=== PATIENT | female | born 1945 | race Caucasian/White ===

== ENCOUNTER 2022-05-21 02:27 | Emergency (ER) | payer MEDICARE, OTHER ==
[~2022-05-21] VITALS: Ht 170.2 cm; Wt 74.8 kg
[2022-05-21] MEDS ORDERED: ICOS1CAP PO (02:58)
[2022-05-21] MEDS ORDERED: ASPI81TA31 PO (02:58)
[2022-05-21] MEDS ORDERED: RISP0.5T65 PO (02:58)
[2022-05-21] MEDS ORDERED: BENZ1TAB7 PO (02:58)
[2022-05-21] MEDS ORDERED: LEVO75TA7 PO (02:58)
[2022-05-21] MEDS ORDERED: GABA-532 PO (02:58)
[2022-05-21] MEDS ORDERED: ATOR40TA PO (02:58)
[2022-05-21] MEDS ORDERED: DIVA250T PO (02:58)
[2022-05-21] MEDS ORDERED: VALB40CA2 PO (02:58)
[2022-05-21] MEDS ORDERED: OMEP20TA5 PO (02:58)
[2022-05-21] MEDS ORDERED: LORAZEPAM 2 MG/1 ML VIAL IV ONE (03:30)
--- NOTE | 2022-05-21 03:30 | NUR ---
Seen and examined by Dr. Lucas
[2022-05-21] MEDS ORDERED: LORAZEPAM 2 MG/1 ML VIAL ONE (03:31)
--- NOTE | 2022-05-21 04:00 | NUR ---
gave meds as ordered, IV SL 20G on r hand noted.
[2022-05-21 04:23] LABS: HEMATOCRIT 39.5 % (31.2-41.9); MEAN CORPUSCULAR HEMOGLOBIN 33.6 uug (24.7-32.8); PLATELET COUNT (AUTO) 131 K/uL (179-408)
[2022-05-21 04:30] LABS: CARBON DIOXIDE 32 mmol/L (21-32); CHLORIDE 105 mmol/L (98-107); CREATININE 1.1 mg/dL (0.6-1.3); GLUCOSE 111 mg/dL (74-106); POTASSIUM 3.8 mmol/L (3.5-5.1); UREA NITROGEN, BLOOD 32 mg/dL (7-18)
[2022-05-21 04:36] LABS: ALANINE AMINOTRANSFERASE 16 U/L (14-59); ALKALINE PHOSPHATASE 127 U/L (50-136); ASPARTATE AMINOTRANSFERASE 12 U/L (15-37); BILIRUBIN,DIRECT 0.2 mg/dL (0.0-0.2); BILIRUBIN,TOTAL 0.5 mg/dL (0.2-1.0); CREATINE KINASE, TOTAL 99 U/L (26-192); TOTAL PROTEIN, SERUM 7.7 g/dL (6.4-8.2)
[2022-05-21 04:44] LABS: THYROID STIMULATING HORMONE 5.659 mIU/mL (0.358-3.740)
[2022-05-21 04:51] LABS: ETHANOL < 3 MG/DL (0-0)
[2022-05-21] MEDS ORDERED: ALPR0.5T8 PO (06:55)
--- NOTE | 2022-05-21 06:55 | NUR ---
sister left, and informed to discharge patient and call [employer], she set up [employer] account on her phone. Elena Lopez .
--- NOTE | 2022-05-21 07:03 | NUR ---
Patient discharged to home in stable condition. Written and verbal after care instructions given. Patient verbalizes understanding of instructions. Stressed follow up or return to ER for worsening s/s. called [employer] per sister. ordered [employer] to pick patient up
[2022-05-21 07:04] VITALS: BP 120/80
== END 2022-05-21 07:04 | disposition home or self-care (01) ==
LOC: ER 02:41
DX: G25.1 Drug-induced tremor (principal); T43.4X5A Adverse effect of butyrophenone and thiothixene neuroleptics, initial encounter; Y92.89 Other specified places as the place of occurrence of the external cause; E78.5 Hyperlipidemia, unspecified; E03.9 Hypothyroidism, unspecified; Z96.641 Presence of right artificial hip joint; Z88.2 Allergy status to sulfonamides; Z79.82 Long term (current) use of aspirin; Z79.899 Other long term (current) drug therapy; F99 Mental disorder, not otherwise specified
CPT/HCPCS: 80076; 80048; 82550; 84443; 80164; 85025; 36415; 99284; 96374; 80320; J2060; A4663; G0480

== ENCOUNTER 2022-06-22 14:37 | Inpatient (IN) | payer MEDICARE, OTHER ==
[~2022-06-22] VITALS: Ht 170.2 cm; Wt 74.8 kg
[~2022-06-22 14:37] MED LIST: ALPR0.5T8 PO; ASPI81TA31 PO; ATOR40TA PO; BENZ1TAB7 PO; DIVA250T PO; GABA-532 PO; ICOS1CAP PO; LEVO75TA7 PO; OMEP20TA5 PO; RISP0.5T65 PO; VALB40CA2 PO
[2022-06-22] MEDS ORDERED: ONDANSETRON ODT 4 MG TAB.RAPDIS ONE (15:40)
[2022-06-22] MEDS ORDERED: IV NORMAL SALINE 1000 ML BAG IV ONE (15:45)
[2022-06-22] MEDS ORDERED: HYDROCODONE/APAP 5-325MG TABLET PO ONE (15:45)
[2022-06-22] MEDS ORDERED: ONDANSETRON ODT 4 MG TAB.RAPDIS SL ONE (15:45)
[2022-06-22 15:52] LABS: HEMATOCRIT 37.4 % (31.2-41.9); MEAN CORPUSCULAR HEMOGLOBIN 33.4 uug (24.7-32.8); MEAN CORPUSCULAR VOLUME 99.9 fL (75.5-95.3); PLATELET COUNT (AUTO) 151 K/uL (179-408)
[2022-06-22 16:00] LABS: CARBON DIOXIDE 31 mmol/L (21-32); CHLORIDE 104 mmol/L (98-107); GLUCOSE 99 mg/dL (74-106); POTASSIUM 3.9 mmol/L (3.5-5.1); UREA NITROGEN, BLOOD 24 mg/dL (7-18)
[2022-06-22] MEDS ORDERED: HYDROCODONE/APAP 5-325MG TABLET ONE (16:05)
[2022-06-22 16:12] LABS: ALANINE AMINOTRANSFERASE 13 U/L (14-59); ALKALINE PHOSPHATASE 88 U/L (50-136); ASPARTATE AMINOTRANSFERASE 17 U/L (15-37); BILIRUBIN,DIRECT 0.1 mg/dL (0.0-0.2); BILIRUBIN,TOTAL 0.4 mg/dL (0.2-1.0); TOTAL PROTEIN, SERUM 7.4 g/dL (6.4-8.2)
[2022-06-22 17:05] LABS: *BLOOD, URINE NEGATIVE (NEGATIVE); *CLARITY,URINE CLEAR (CLEAR); *COLOR,URINE YELLOW (YELLOW); *KETONES,URINE 1+ (NEGATIVE); LEUKOCYTE ESTERASE ,URINE TRACE (NEGATIVE); NITRITE, URINE NEGATIVE (NEGATIVE); PH,URINE 5.5 (5.0-8.0); UGLUCOSE NEGATIVE (NEGATIVE)
[2022-06-22 17:07] LABS: *BILIRUBIN,URIN 1+ (NEGATIVE)
[2022-06-22 17:08] LABS: BACTERIA,URINE FEW /HPF (NONE SEEN); SQUAMOUS EPITHELIAL CELL,UR FEW /HPF (NONE SEEN)
[2022-06-22] MEDS ORDERED: LORAZEPAM 0.5 MG TABLET ONE (17:30)
[2022-06-22] MEDS ORDERED: LORAZEPAM 0.5 MG TABLET PO ONE (17:30)
[2022-06-22] MEDS ORDERED: DICL75TA5 PO (17:55)
[2022-06-22] MEDS ORDERED: DOCU100C36 PO (17:55)
[2022-06-22] MEDS ORDERED: RISP0.5T65 PO (17:55)
[2022-06-22 18:38] VITALS: BP 156/76
[2022-06-22] MEDS ORDERED: MAGNESIUM HYDROXIDE 30 ML LIQUID UDC PO PRN (18:45)
[2022-06-22] MEDS ORDERED: ONDANSETRON 4 MG/2 ML VIAL IV PRN (18:45)
[2022-06-22] MEDS ORDERED: ACETAMINOPHEN 325 MG TABLET PO PRN (18:45)
[2022-06-22] MEDS ORDERED: REMEDY ESSENTIAL ZINC PASTE 113 GM TP PRN (18:45)
[2022-06-22] MEDS ORDERED: ATOR20TA PO (18:46)
[2022-06-22] MEDS ORDERED: LEVO50TA8 PO (18:54)
[2022-06-22] MEDS ORDERED: DIVALPROEX ER 250 MG TAB.SR.24H PO SCH (21:00)
[2022-06-22] MEDS: ATORVASTATIN 20 MG TABLET PO SCH (21:24)
[2022-06-22] MEDS: GABAPENTIN 100 MG CAPSULE PO SCH (21:25)
[2022-06-22] MEDS: ENOXAPARIN SODIUM 40 MG/0.4 ML DISP.SYRIN SQ SCH (21:27)
[2022-06-23 04:00] VITALS: BP 134/74
[2022-06-23] MEDS: LEVOTHYROXINE SODIUM 50 MCG TABLET PO SCH (06:36)
[2022-06-23] MEDS: PANTOPRAZOLE SODIUM 40 MG TABLET.DR PO SCH (06:37)
[2022-06-23 07:00] LABS: HEMATOCRIT 34.1 % (31.2-41.9); MEAN CORPUSCULAR HEMOGLOBIN 34.1 uug (24.7-32.8); MEAN CORPUSCULAR VOLUME 100.1 fL (75.5-95.3); PLATELET COUNT (AUTO) 126 K/uL (179-408)
[2022-06-23 07:15] LABS: CREATININE 0.8 mg/dL (0.6-1.3); MAGNESIUM 2.2 mg/dL (1.8-2.4); PHOSPHOROUS 3.8 mg/dL (2.5-4.9)
[2022-06-23 07:18] LABS: THYROID STIMULATING HORMONE 1.157 mIU/mL (0.358-3.740)
[2022-06-23 08:43] VITALS: BP 142/68
[2022-06-23] MEDS ORDERED: BENZTROPINE MESYLATE 1 MG TABLET PO SCH (09:00)
[2022-06-23] MEDS: DOCUSATE SODIUM 100 MG CAPSULE PO SCH ×2 (09:35→16:39)
[2022-06-23] MEDS: ASPIRIN 81 MG TAB.CHEW PO SCH (09:36)
[2022-06-23] MEDS: risperiDONE 1 MG TABLET PO SCH (09:36)
[2022-06-23] MEDS: HYDROCODONE/APAP 5-325MG TABLET PO PRN (09:49)
[2022-06-23] MEDS: ALPRAZOLAM 0.5 MG TABLET PO PRN ×2 (14:53→20:53)
[2022-06-23 15:50] VITALS: BP 137/72
[2022-06-23] MEDS ORDERED: QUET50TA PO (18:11)
[2022-06-23] MEDS: ENOXAPARIN SODIUM 40 MG/0.4 ML DISP.SYRIN SQ SCH (20:51)
[2022-06-23] MEDS: GABAPENTIN 100 MG CAPSULE PO SCH (20:53)
[2022-06-23] MEDS: ATORVASTATIN 20 MG TABLET PO SCH (20:53)
[2022-06-23] MEDS: DIVALPROEX ER 250 MG TAB.SR.24H PO SCH (20:53)
[2022-06-23] MEDS: QUETIAPINE FUMARATE 25 MG TABLET PO SCH (20:59)
[2022-06-23 22:00] VITALS: BP 91/55
[2022-06-24 05:00] VITALS: BP 152/93
[2022-06-24] MEDS: LEVOTHYROXINE SODIUM 50 MCG TABLET PO SCH (05:06)
[2022-06-24] MEDS: PANTOPRAZOLE SODIUM 40 MG TABLET.DR PO SCH (05:06)
[2022-06-24] MEDS: DOCUSATE SODIUM 100 MG CAPSULE PO SCH ×2 (08:20→16:43)
[2022-06-24] MEDS: risperiDONE 1 MG TABLET PO SCH (08:20)
[2022-06-24] MEDS: ASPIRIN 81 MG TAB.CHEW PO SCH (08:20)
[2022-06-24] MEDS: ALPRAZOLAM 0.5 MG TABLET PO PRN ×2 (08:20→16:43)
[2022-06-24 12:00] VITALS: BP 102/43
[2022-06-24 16:02] VITALS: BP 134/78
[2022-06-24] MEDS: HYDROCODONE/APAP 5-325MG TABLET PO PRN (18:02)
[2022-06-24 20:00] VITALS: BP 126/66
[2022-06-24] MEDS: GABAPENTIN 100 MG CAPSULE PO SCH (21:12)
[2022-06-24] MEDS: DIVALPROEX ER 250 MG TAB.SR.24H PO SCH (21:12)
[2022-06-24] MEDS: ATORVASTATIN 20 MG TABLET PO SCH (21:12)
[2022-06-24] MEDS: QUETIAPINE FUMARATE 25 MG TABLET PO SCH (21:13)
[2022-06-24] MEDS: ENOXAPARIN SODIUM 40 MG/0.4 ML DISP.SYRIN SQ SCH (21:14)
[2022-06-25 04:00] VITALS: BP 139/72
[2022-06-25] MEDS: PANTOPRAZOLE SODIUM 40 MG TABLET.DR PO SCH (06:14)
[2022-06-25] MEDS: LEVOTHYROXINE SODIUM 50 MCG TABLET PO SCH (07:02)
[2022-06-25 08:06] VITALS: BP 140/85
[2022-06-25] MEDS: DOCUSATE SODIUM 100 MG CAPSULE PO SCH (09:07)
[2022-06-25] MEDS: ALPRAZOLAM 0.5 MG TABLET PO PRN (09:07)
[2022-06-25] MEDS: ASPIRIN 81 MG TAB.CHEW PO SCH (09:07)
[2022-06-25] MEDS: HYDROCODONE/APAP 5-325MG TABLET PO PRN (09:08)
[2022-06-25] MEDS: risperiDONE 1 MG TABLET PO SCH (09:08)
[2022-06-25 11:30] VITALS: BP_SYST 134; BP_SYST 98; BP_DIAS 56; BP_DIAS 85
[2022-06-25] MEDS ORDERED: BENZTROPINE MESYLATE 1 MG TABLET PO SCH (13:00)
[2022-06-25] MEDS ORDERED: BENZ1TAB7 PO (14:24)
[2022-06-25 15:14] VITALS: BP 100/59
[2022-06-25] MEDS ORDERED: AMANTADINE HCL 100 MG CAPSULE PO SCH (21:00)
== END 2022-06-25 16:45 | DRG 57 ==
LOC: ER 14:37 → MED 18:14
PROVIDERS: ATTEND Nurse Practitioner Acute Care
DX: G21.11 Neuroleptic induced parkinsonism (principal); T43.4X5A Adverse effect of butyrophenone and thiothixene neuroleptics, initial encounter; E03.9 Hypothyroidism, unspecified; E78.5 Hyperlipidemia, unspecified; Z96.641 Presence of right artificial hip joint; Y92.89 Other specified places as the place of occurrence of the external cause; F03.90 Unspecified dementia, unspecified severity, without behavioral disturbance, psychotic disturbance, mood disturbance, and anxiety; R53.1 Weakness; Z20.822 Contact with and (suspected) exposure to COVID-19
CPT/HCPCS: 36415; 70450; 71045; 82747; 83735; 84100; 84443; 84484; 85014; 85025; 85730; 93005; A4663; G0378; J1650; J7040; Q0162

== ENCOUNTER 2023-07-15 13:29 | Emergency (ER) | payer MEDICARE, OTHER ==
[~2023-07-15] VITALS: Ht 170.2 cm; Wt 74.8 kg
[~2023-07-15 13:29] MED LIST changes: +ATOR20TA PO; -ATOR40TA PO; +DICL75TA5 PO; +DOCU100C36 PO; -ICOS1CAP PO; +LEVO50TA8 PO; -LEVO75TA7 PO; -OMEP20TA5 PO; +QUET50TA PO
[2023-07-15 14:11] LABS: BASOPHILS # (AUTO) 0.1 K/UL (0.0-0.2); BASOPHILS % (AUTO) 0.8 % (0.0-2.0); EOSINOPHILS # (AUTO) 0.1 K/uL (0.0-0.7); EOSINOPHILS % (AUTO) 1.7 % (0.0-7.0); HEMATOCRIT 36.5 % (31.2-41.9); HEMOGLOBIN 12.4 g/dL (10.9-14.3); LYMPHOCYTES # (AUTO) 2.6 K/uL (0.8-4.8); LYMPHOCYTES % (AUTO) 33.7 % (20.5-51.5); MEAN CORPUSCULAR HGB CONC 34 g/dL (32.3-35.6); MEAN CORPUSCULAR VOLUME 100.2 fL (75.5-95.3); MONOCYTES # (AUTO) 0.7 K/uL (0.1-1.30); MONOCYTES % (AUTO) 8.6 % (0.0-11.0); NEUTROPHILS # (AUTO) 4.3 K/uL (1.8-8.9); NEUTROPHILS % (AUTO) 55.2 % (38.5-71.5); PLATELET COUNT (AUTO) 163 K/uL (179-408); RED BLOOD CELL COUNT(AUTO) 3.64 MIL/uL (3.63-4.92); RED CELL DISTRIBUTION WIDTH 14.5 % (12.3-17.7); WHITE BLOOD COUNT (AUTO) 7.7 K/uL (3.8-11.8)
[2023-07-15 14:21] LABS: DIFFERENTIAL COMMENT 1
[2023-07-15 14:24] LABS: ETHANOL < 3 MG/DL (0-10)
[2023-07-15 14:50] LABS: CALCIUM 8.4 mg/dL (8.5-10.1); CARBON DIOXIDE 31 mmol/L (21-32); CHLORIDE 103 mmol/L (98-107); CREATININE 0.8 mg/dL (0.6-1.3); GLUCOSE 105 mg/dL (74-106); POTASSIUM 4.3 mmol/L (3.5-5.1); SODIUM SERUM 141 mmol/L (136-145); UREA NITROGEN, BLOOD 29 mg/dL (7-18)
[2023-07-15 14:56] LABS: ALANINE AMINOTRANSFERASE 17 U/L (14-59); ALBUMIN 3.1 g/dL (3.4-5.0); ALKALINE PHOSPHATASE 101 U/L (50-136); ASPARTATE AMINOTRANSFERASE 14 U/L (15-37); BILIRUBIN,DIRECT 0.1 mg/dL (0.0-0.2); BILIRUBIN,TOTAL 0.3 mg/dL (0.2-1.0); TOTAL PROTEIN, SERUM 6.5 g/dL (6.4-8.2)
[2023-07-15 14:59] LABS: ACETAMINOPHEN < 2.0 ug/mL (10-30)
[2023-07-15 15:31] LABS: *BILIRUBIN,URIN NEGATIVE (NEGATIVE); *BLOOD, URINE NEGATIVE (NEGATIVE); *CLARITY,URINE CLEAR (CLEAR); *COLOR,URINE YELLOW (YELLOW); *KETONES,URINE NEGATIVE (NEGATIVE); *PROTEIN,URINE NEGATIVE (NEGATIVE); LEUKOCYTE ESTERASE ,URINE 1+ (NEGATIVE); NITRITE, URINE NEGATIVE (NEGATIVE); UGLUCOSE NEGATIVE (NEGATIVE)
[2023-07-15 15:42] LABS: *AMPHETAMINE, URINE NEGATIVE (NEGATIVE); *BARBITURATE, URINE NEGATIVE (NEGATIVE); *BENZODIAZEPINE, URINE NEGATIVE (NEGATIVE); *CANNABINOID, URINE NEGATIVE (NEGATIVE); *COCCAINE, URINE NEGATIVE (NEGATIVE); *OPIATE, URINE NEGATIVE (NEGATIVE); *PHENCYCLIDINE SCREEN,URINE NEGATIVE (NEGATIVE)
[2023-07-15 15:49] LABS: FENTANYL, URINE NEGATIVE (NEGATIVE)
[2023-07-15 16:20] LABS: WBC,URINE 0-3 /HPF (0-3)
[2023-07-15 16:21] LABS: SQUAMOUS EPITHELIAL CELL,UR FEW /HPF (NONE SEEN)
[2023-07-15 16:54] VITALS: BP 122/80; TEMP 98; O2SAT 99
== END 2023-07-15 16:56 | disposition home or self-care (01) ==
LOC: ER 13:31
DX: F09 Unspecified mental disorder due to known physiological condition (principal); E78.5 Hyperlipidemia, unspecified; E03.9 Hypothyroidism, unspecified; Z79.82 Long term (current) use of aspirin; Z79.899 Other long term (current) drug therapy; Z98.890 Other specified postprocedural states; Z60.2 Problems related to living alone; Z88.2 Allergy status to sulfonamides
CPT/HCPCS: 36415; 70450; 85025; A4606; A4663; G0480